=== PATIENT | female | born 2000 | race African-American/Black ===

== ENCOUNTER 2021-02-10 15:06 | Emergency (ER) | payer MEDICAID ==
[~2021-02-10] VITALS: Ht 157.5 cm; Wt 81.0 kg
[2021-02-10] MEDS ORDERED: SODIUM CHLORIDE 0.9% 1,000 ML IV ONE (16:45)
[2021-02-10] MEDS ORDERED: ONDANSETRON HCL 4MG/2ML INJ IV ONE (16:45)
[2021-02-10 17:20] LABS: BASOPHILS % 0.6 % (0.0-2.0); EOSINOPHILS % 0.9 % (0.0-5.0); LYMPHOCYTES % 20.1 % (20.0-50.0); MEAN CORPUSCULAR HEMOGLOBIN 25.5 pg (28.0-32.0); MEAN CORPUSCULAR VOLUME 78.9 fL (81.0-99.0); MEAN PLATELET VOLUME 8.3 fl (7.4-10.4); MONOCYTES % 7.5 % (2.0-8.0); NEUTROPHILS % 70.9 % (40.0-76.0); PLATELET 362 x1000/uL (130-400); RED BLOOD CELL COUNT 4.32 mill/uL (4.2-5.4); RED CELL DISTRIBUTION WIDTH 16.2 % (11.6-14.6)
[2021-02-10 17:24] LABS: CHLORIDE 104 mEq/L (98-107)
[2021-02-10 17:44] LABS: CLARITY URINE CLEAR (CLEAR); COLOR URINE YELLOW (YELLOW); KETONES URINE NEGATIVE (NEGATIVE); LEUKOCYTE ESTERASE URINE 1+ (NEGATIVE); NITRITE URINE NEGATIVE (NEGATIVE); OCCULT BLOOD URINE NEGATIVE (NEGATIVE); PH URINE 7.5 (4.5-8.0); PROTEIN URINE NEGATIVE (NEGATIVE); SPECIFIC GRAVITY URINE 1.018 (1.005-1.030)
[2021-02-10 17:49] LABS: B-HCG QUANTITATIVE 127516 mIU/mL (<3)
[2021-02-10] MEDS ORDERED: ONDANSETRON 4MG ODT PO ONE (18:45)
[2021-02-10] MEDS ORDERED: NITROFURANTOIN 100MG M/M CAPSULE PO ONE (19:15)
[2021-02-10] MEDS ORDERED: ONDA4TAB11 PO (19:16)
[2021-02-10] MEDS ORDERED: NITR-87 MT (19:16)
[2021-02-10 19:25] VITALS: BP 133/71
== END 2021-02-10 19:25 | disposition home or self-care (01) ==
LOC: ER 15:25
DX: O23.41 Unspecified infection of urinary tract in pregnancy, first trimester (principal); Z3A.09 9 weeks gestation of pregnancy; O99.011 Anemia complicating pregnancy, first trimester
CPT/HCPCS: 36415; 76801; 80053; 81003; 81025; 84702; 85025; 86850; 86900; 86901; 99284; J7030; Q0162